=== PATIENT | female | born 1970 | race Two or more races ===

== ENCOUNTER → 2017-05-10 08:06 | Outpatient (CLI) | payer OTHER | END | disposition home or self-care (01) | LOC: LAB 08:06 | DX: N60.11 Diffuse cystic mastopathy of right breast (principal) ==

== ENCOUNTER 2018-01-11 07:20 | Outpatient (CLI) | payer OTHER | END 2018-01-11 07:37 | disposition home or self-care (01) | LOC: LAB 07:20 | DX: Z11.3 Encounter for screening for infections with a predominantly sexual mode of transmission (principal); R74.8 Abnormal levels of other serum enzymes; A60.04 Herpesviral vulvovaginitis; Z11.4 Encounter for screening for human immunodeficiency virus [HIV] ==

== ENCOUNTER 2018-11-15 09:18 | Outpatient (CLI) | payer OTHER ==
[~2018-11-15] VITALS: Ht 165.1 cm; Wt 79.4 kg
== END 2018-11-15 09:30 | disposition home or self-care (01) ==
LOC: OFIC 805 09:18
DX: J32.8 Other chronic sinusitis (principal); R09.81 Nasal congestion

== ENCOUNTER 2018-11-23 11:50 | Emergency (ER) | payer OTHER ==
[~2018-11-23] VITALS: Ht 165.1 cm; Wt 72.6 kg
[2018-11-23] MEDS ORDERED: LEVO-T25 MCG (12:07)
[2018-11-23] MEDS ORDERED: ZOLOFT25 MG PO (12:07)
== END 2018-11-23 15:46 | disposition home or self-care (01) ==
LOC: ER 11:50
DX: R51 Headache (principal)

== ENCOUNTER 2024-12-11 13:09 | Inpatient (IN) | payer OTHER ==
[~2024-12-11] VITALS: Ht 165.1 cm; Wt 63.5 kg
[~2024-12-11 13:09] MED LIST: LEVO-T25 MCG; ZOLOFT25 MG PO
[2024-12-11] MEDS ORDERED: ARMOUR THYROID90 MG PO (13:45)
[2024-12-11] MEDS ORDERED: AMLODIPINE-OLM1 EAC3 PO (13:45)
[2024-12-11] MEDS ORDERED: WELLBUTRIN SR100 MG PO (13:45)
[2024-12-11] MEDS ORDERED: KETOROLAC TROMETHAMINE 30 MG VIAL ONE (15:27)
[2024-12-11] MEDS ORDERED: CEFTRIAXONE SODIUM 2,000 MG VIAL ONE (15:28)
[2024-12-11] MEDS ORDERED: ONDANSETRON HCL 2 MG/ML VIAL ONE (15:28)
[2024-12-11] MEDS ORDERED: 0.9 % SODIUM CHLORIDE 1,000 ML IV SCH ×2 (15:30→19:30)
[2024-12-11] MEDS ORDERED: KETOROLAC TROMETHAMINE 30 MG VIAL IV ONE (15:30)
[2024-12-11] MEDS ORDERED: CEFTRIAXONE SODIUM 2,000 MG VIAL IV ONE (15:30)
[2024-12-11] MEDS ORDERED: ONDANSETRON HCL 2 MG/ML VIAL IV ONE (15:30)
[2024-12-11 16:17] LABS: BASO % 0.2 % (0.1-1.2); EOS # 0.05 (0.04-0.54); EOS % 0.4 % (0.7-7.0); LYMPH # 0.92 (1.18-3.74); LYMPH % 8.2 % (19.3-53.1); MEAN PLATELET VOLUME 9.50 fl (9.4-12.4); MONO # 0.80 (0.24-0.82); MONO % 7.1 % (4.7-12.5); NEUT # 9.46 (1.56-6.13); NEUT % 83.8 % (34.0-71.1); RED CELL DISTRIBUTION WIDTH 12.0 % (11.6-14.4)
[2024-12-11 16:26] LABS: URINE APPEARANCE Cloudy; URINE BILIRRUBIN Small (NEGATIVE); URINE BLOOD Negative; URINE COLOR Dark Yellow; URINE GLUCOSE Negative (NEGATIVE); URINE LEUKOCYTE Trace; URINE NITRATE Negative; URINE PROTEIN 30 (NEGATIVE); URINE UROBILINOGEN 1.0 E.U./dl
[2024-12-11 16:29] LABS: URINE BACTERIA 3775.0 uL (0.0-1933); URINE CAST 6.59 uL (0.0-1.40); URINE EPITHELIAL CELLS 185.5 uL (0.0-38.8); URINE RBC 10.2 uL (0.0-20.8); URINE WBC 155.6 uL (0.0-23.2)
[2024-12-11 16:44] LABS: INR < 0.93
[2024-12-11 16:44] LABS: URINE KETONE 80 (NEGATIVE); URINE MUCUS MODERATE
[2024-12-11 16:49] LABS: ALT/SGPT 35.0 U/L (12-78); AST/SGOT 13.0 U/L (15-37); BILIRUBIN TOTAL 0.77 mg/dL (0.3-1.2); BUN CREA RATIO 11.0 (7.0-25.0); CREATININE SERUM 0.75 mg/dL (0.55-1.02); GFR 79.93; GLOBULINA 4.2 G/DL (2.4-3.5); GLUCOSE FASTING 104.0 mg/dL (65-100); OSMOLALITY SERUM 278.0 MOSM/KG (275-295)
[2024-12-11] MEDS ORDERED: PIPERACILLIN/TAZOBACTAM SODIUM 3.375 GM VIAL IV ONE ×3 (17:30→18:04)
[2024-12-11] MEDS ORDERED: MORPHINE SULFATE 4 MG/ML VIAL IV ONE (19:00)
[2024-12-11] MEDS ORDERED: PIPERACILLIN/TAZOBACTAM SODIUM 3.375 GM in 0.9 % SODIUM CHLORIDE 100 ML IV SCH (19:16)
[2024-12-11] MEDS ORDERED: AMLODIPINE BESYLATE 10 MG TABLET PO SCH (19:28)
[2024-12-11] MEDS ORDERED: MORPHINE SULFATE 2 MG/ML CARTRIDGE IV PRN (19:30)
[2024-12-11] MEDS ORDERED: ONDANSETRON HCL 4 MG in 0.9 % SODIUM CHLORIDE 50 ML IV PRN (19:30)
[2024-12-11 20:05] LABS: COVID-19 AG NEGATIVE (NEGATIVE)
[2024-12-12 01:46] VITALS: BP 117/79; O2SAT 100
[2024-12-12 08:00] VITALS: BP 127/87; O2SAT 98
[2024-12-12] MEDS ORDERED: MORPHINE SULFATE 4 MG/ML VIAL IV PRN (09:45)
[2024-12-12] MEDS ORDERED: LIDOCAINE HCL 1%/EPINEPHRINE 20ML VIAL IJ ONE (12:43)
[2024-12-12] MEDS ORDERED: BUPIVACAINE HCL/MPF 0.5% 30ML VIAL ONE (12:43)
[2024-12-12] MEDS ORDERED: SUGAMMADEX SODIUM 200 MG/2 ML VIAL IV ONE (13:57)
[2024-12-12] MEDS ORDERED: MORPHINE SULFATE 4 MG/ML VIAL IV ONE (15:25)
[2024-12-13 01:45] VITALS: BP 105/74; O2SAT 99
[2024-12-13 06:27] LABS: BASO % 0.5 % (0.1-1.2); EOS # 0.14 (0.04-0.54); EOS % 2.2 % (0.7-7.0); LYMPH # 1.00 (1.18-3.74); LYMPH % 15.6 % (19.3-53.1); MEAN PLATELET VOLUME 10.10 fl (9.4-12.4); MONO # 0.57 (0.24-0.82); MONO % 8.9 % (4.7-12.5); NEUT # 4.63 (1.56-6.13); NEUT % 72.5 % (34.0-71.1); RED CELL DISTRIBUTION WIDTH 11.6 % (11.6-14.4)
[2024-12-13 06:58] LABS: ALT/SGPT 29.0 U/L (12-78); AST/SGOT 21.0 U/L (15-37); BILIRUBIN TOTAL 0.57 mg/dL (0.3-1.2); BUN CREA RATIO 15.0 (7.0-25.0); CREATININE SERUM 0.53 mg/dL (0.55-1.02); GFR 119.33; GLOBULINA 2.8 G/DL (2.4-3.5); GLUCOSE FASTING 102.0 mg/dL (65-100); OSMOLALITY SERUM 283.0 MOSM/KG (275-295)
[2024-12-13 08:23] VITALS: BP 110/78; O2SAT 97
[2024-12-13] MEDS ORDERED: TRAM1TAB98 PO (12:02)
== END 2024-12-13 13:03 | disposition home or self-care (01) | DRG 399 ==
LOC: ER 13:09 → SURH 19:49
PROVIDERS: General Practice; Specialist; ADMIT Internal Medicine; ATTEND Internal Medicine
PROC: BW21YZZ Computerized Tomography (CT Scan) of Abdomen and Pelvis using Other Contrast (ICD-10-PCS; 2024-12-11)
PROC: 0DTJ4ZZ Resection of Appendix, Percutaneous Endoscopic Approach (ICD-10-PCS; principal; 2024-12-12 14:00)
DX: K37 Unspecified appendicitis (principal); I10 Essential (primary) hypertension; E03.9 Hypothyroidism, unspecified